=== PATIENT | male | born 2000 | race Caucasian/White ===

== ENCOUNTER 2020-10-30 18:37 | Emergency (ER) | payer BC ==
[~2020-10-30] VITALS: Ht 175.3 cm; Wt 77.3 kg
[2020-10-30 18:43] VITALS: TEMP 97.3
[2020-10-30] MEDS ORDERED: CEPHALEXIN500 M1 PO (19:29)
[2020-10-30 19:42] VITALS: BP 143/68; PULSE 78
== END 2020-10-30 19:49 | disposition home or self-care (01) ==
LOC: COL.ER 18:37
DX: S60.551A Superficial foreign body of right hand, initial encounter (principal); W45.8XXA Other foreign body or object entering through skin, initial encounter

== ENCOUNTER 2021-04-01 17:38 | Emergency (ER) | payer OTHER ==
[~2021-04-01] VITALS: Ht 177.8 cm; Wt 81.8 kg
[~2021-04-01 17:38] MED LIST: CEPHALEXIN500 M1 PO
[2021-04-01] MEDS ORDERED: CEPHALEXIN500 M1 PO (21:01)
[2021-04-01 21:33] VITALS: BP 136/89; PULSE 89; TEMP 98.6
== END 2021-04-01 21:33 | disposition home or self-care (01) ==
LOC: COL.ER 17:38
DX: S92.411A Displaced fracture of proximal phalanx of right great toe, initial encounter for closed fracture (principal); S92.511A Displaced fracture of proximal phalanx of right lesser toe(s), initial encounter for closed fracture; W28.XXXA Contact with powered lawn mower, initial encounter